=== PATIENT | male | born 1960 | race Caucasian/White ===

== ENCOUNTER 2019-12-03 11:52 | Emergency (ER) | payer OTHER ==
[~2019-12-03] VITALS: Ht 170.2 cm; Wt 145.2 kg
[2019-12-03] MEDS ORDERED: NEXIUM10 MG PO (11:56)
[2019-12-03] MEDS ORDERED: LYRICA25 MG PO (11:56)
[2019-12-03] MEDS ORDERED: WELLBUTRIN 75 M75 M1 PO (11:56)
[2019-12-03] MEDS ORDERED: ATORVASTATIN CA20 MG PO (11:56)
[2019-12-03] MEDS ORDERED: LISINOPRIL2.5 MG PO (11:56)
[2019-12-03] MEDS ORDERED: ZOLOFT50 M1 PO (11:56)
[2019-12-03 12:10] LABS: ABSOLUTE BASOPHILS 0.1 thou/uL (0.0-0.2); ABSOLUTE EOSINOPHILS 0.2 thou/uL (0.0-0.7); ABSOLUTE LYMPHOCYTES 1.2 thou/uL (0.8-5.3); ABSOLUTE MONOCYTES 0.8 thou/uL (0.0-1.2); ABSOLUTE NEUTROPHILS 9.1 thou/uL (1.6-8.1); BASOPHILS 0.8 %; EOSINOPHILS 1.4 %; HEMATOCRIT 42.9 % (42.0-52.0); HEMOGLOBIN 14.4 gm/dL (14.0-18.0); LYMPHOCYTES 10.3 %; MCHC 33.5 g/dL (28.0-37.0); MCV 77.5 fL (80.0-100.0); MPV 9.2 fl. (7.2-11.1); NUCLEATED RBCS 0 /100WBC; PLATELET COUNT* 206 thou/uL (150-400); POLYS 80.5 %; RBC 5.53 mil/uL (4.50-6.00); RDW-CV 16.3 % (10.5-14.5); WBC 11.4 thou/uL (4.0-11.0)
[2019-12-03 12:26] LABS: CALCIUM 8.9 mg/dL (8.5-10.1); CREATININE 1.2 mg/dL (0.6-1.3); POTASSIUM 3.7 mmol/L (3.5-5.1)
[2019-12-03 12:31] LABS: ALBUMIN 3.8 g/dL (3.4-5.0); TOTAL BILIRUBIN 0.7 mg/dL (<0.1-1.0); TOTAL PROTEIN 7.7 g/dL (6.4-8.2)
[2019-12-03 14:48] LABS: URINE BILIRUBIN NEGATIVE (Negative); URINE BLOOD 3+ (Negative); URINE CLARITY CLEAR; URINE COLOR YELLOW; URINE GLUCOSE-RANDOM NEGATIVE (Negative); URINE KETONES NEGATIVE (Negative); URINE LEUKOCYTES-REFLEX NEGATIVE (Negative); URINE NITRITE-REFLEX NEGATIVE (Negative); URINE PROTEIN NEGATIVE (Negative); URINE UROBILINOGEN 0.2 E.U./dl (0.2-1.0)
[2019-12-03 14:59] LABS: CASTS None Seen /LPF (None Seen); CRYSTALS None Seen /LPF (None Seen); SQUAMOUS 0-3 Few /LPF (0-3); URINE WBC-REFLEX 0-5 Rare /HPF (0-5)
[2019-12-03] MEDS ORDERED: ONDANSETRON ODT4 MG PO (15:04)
[2019-12-03] MEDS ORDERED: FLOMAX0.4 MG PO ×2 (15:04→15:15)
[2019-12-03] MEDS ORDERED: NORCO 5-325 TA1 EAC2 PO ×2 (15:04→15:15)
[2019-12-03] MEDS ORDERED: ZOFRAN ODT4 MG PO (15:15)
[2019-12-03 15:34] VITALS: BP 135/70
--- NOTE | 2019-12-03 17:56 | EKG ---
[place] [address] ELECTROCARDIOGRAM REPORT Name: AMELIA MISTRY Room: [facility]#: [id number] Admission: 12/03/19 Attend Phys: Discharge: 12/03/19 Date of : 64 Date of Service: 12/03/19 1215 Report #: [id number] THIS REPORT FOR: //name// [facility] ED Test Date: 2019-12-03 Test Time: 12:15:06 Pat Name: AMELIA MISTRY Department: Room: Gender: Psychologist Social: [facility] : 1960 Requested By: Evin Lucas Order Number: [id number] Randolph MD: Tung Townsend Measurements Intervals [place] Rate: 79 P: 10 IN: 120 QRS: -4 QRSD: 111 T: 8 QT: 376 QTc: 432 Interpretive Statements Sinus rhythm No previous ECG available for comparison Electronically Signed On 12-03-2019 17:56:18 CDT by Tung Townsend [email or web address] <ELECTRONICALLY SIGNED> By: Tung Townsend MD, FACC 12/03/19 1756 1215 1215 Tung Townsend MD, FACC /EPI
== END 2019-12-03 15:35 | disposition home or self-care (01) ==
LOC: M.ERS 11:52
PROVIDERS: Physician Assistant
DX: R10.31 Right lower quadrant pain (principal); R10.11 Right upper quadrant pain; R31.9 Hematuria, unspecified; I10 Essential (primary) hypertension; K21.9 Gastro-esophageal reflux disease without esophagitis; Z88.6 Allergy status to analgesic agent